=== PATIENT | female | born 1975 | race Caucasian/White ===

== ENCOUNTER 2024-01-31 14:18 | Emergency (ER) | payer OTHER, SELFPAY ==
--- NOTE | ~2024-01-31 | XR_ITS ---
XR foot LT min 3V Ordering provider: Roxy Kim APRN History: . pain across prox lt metatarsals s/p injury 2 weeks ago . Comparison: May 02, 2014 FINDINGS: BONES: No acute fracture or dislocation. Calcaneus spur. JOINT SPACES: Normal. No tarsal coalition. SOFT TISSUES: Normal. IMPRESSION: No acute osseous abnormality left foot. Reviewed, dictated and finalized at location A.
[2024-01-31 14:31] VITALS: BP 160/81; PULSE 76; RESP 16; TEMP 36.2; O2SAT 97
--- NOTE | 2024-01-31 14:49 | ED.LOWEXIN ---
HPI - Extremity Injury (Lower) General Chief Complaint: Extremity Injury, Lower Stated Complaint: left foot injury Source: patient and family ( significant other) Mode of arrival: ambulatory Limitations: no limitations History of Present Illness HPI Narrative: 48-year-old female presents [facility] accompanied by her significant other for complaints of pain, swelling and bruising to the dorsal aspect of her left foot for the past 2 weeks after dropping a heavy metal box on her foot. Patient has been elevating her left foot, applying ice, taking Motrin and applying Aspercreme with little relief. Patient denies numbness, tingling, fever, body aches or chills. complaint: foot injury Onset (ago): week(s) (2) Injury: Left: foot Place: home Relieving factors: nothing Exacerbating factors: weight bearing and movement Other symptoms: none Treatments prior to arrival: cold therapy Related Data Allergies Allergy/AdvReac Type Severity Reaction Status Date / Time No Known Allergies Allergy Unknown Verified 01/31/24 14:45 Review of Systems Constitutional: Constitutional: Denies chills, Denies fatigue, Denies fever(s) and Denies weakness ENT: Denies vertigo and Denies dizziness Cardiovascular: Cardiovascular: Denies chest pain Respiratory: Respiratory: Denies cough, Denies dyspnea and Denies wheezing Gastrointestinal: Gastrointestinal: Denies diarrhea, Denies nausea and Denies vomiting Integumentary/Breasts: Skin/Breast: Denies rash Neurologic: Denies dizziness, Denies syncope and Denies headache(s) PMFSH Past Medical History Medical History Depression Surgical History Surgical History H/O section Family History Family History Father Family history of obesity Diabetes mellitus Mother Family history of obesity Grandparent Family history of pancreatic cancer Family history of malignant neoplasm of breast Other Carcinoma of colon Family history of arthritis Family history of heart disease in male family member before age 55 Family history of malignant neoplasm Family history of mental disorder Hypertension Social History Social History Smoking status: Never smoker Alcohol intake: current Lack of Transportation: No Lack of Food: Never True Current Housing: I Have Housing Concerned About Future Housing: No Difficulty Paying Gas/Electric Bills: No Difficulty Paying for Meds: No Currently Unemployed: No Education: High School Diploma/GED Difficulty w/ Childcare or Family Care: No Comments At time of signature, I agree with nursing past medical, surgical, social and family history. There is no relevant family history pertinent to the presenting complaint. Exam Const: General: healthy appearing and no acute distress Nutritional Appearance: well nourished and obese Orientation/consciousness: patient oriented x3 Limitations: no limitations HENMT: Head: normal to inspection Eyes: Conjunctivae: conjunctivae normal Neck: Neck: normal visual inspection Resp: Effort & Inspection: normal respiratory effort and not labored Auscultation: clear to auscultation bilaterally, no crackles, no rales, no rhonchi and no wheezes Cardio: Rate: regular rate Rhythm: regular rhythm Heart sounds: no murmurs Skin: General skin exam: normal color Rashes: no rashes Wounds: no wounds Neuro: General: patient oriented x3 and moves all extremities Cranial nerves: Yes Nystagmus not present Speech: normal speech Gait exam (Neuro): Normal gait present Extrem: Other: Moderate swelling and minimal bruising noted to dorsal aspect of left foot. There is no streaking erythema, open wounds or signs infection noted. Psych: Affect: normal affect Attitude:
== END 2024-01-31 15:09 | disposition home or self-care (01) ==
PROVIDERS: Emergency Provider Nurse Practitioner Family; PCP Nurse Practitioner Family
DX: M79.672 Pain in left foot (principal)
CPT/HCPCS: 73630; 99213; G0463

== ENCOUNTER 2024-11-28 12:14 | Emergency (ER) | payer OTHER, SELFPAY ==
[2024-11-28 12:25] VITALS: BP 102/57; PULSE 80; RESP 16; TEMP 36.3; O2SAT 96
--- NOTE | 2024-11-28 12:34 | ED_ITS ---
HPI - Ear Problem General Chief complaint: Ear Stated complaint: left ear pain Time Seen by Provider: 11/28/24 12:34 Source: patient Mode of arrival: ambulatory Limitations: no limitations History of Present Illness HPI Narrative: 49-year-old female presented for complaint left ear pain. Onset 3 days. Endorses multiple hearing and pain is worse when lying down. Patient wears a CPAP insists strep causes pain. Denies tinnitus, dizziness, nausea vomiting, fevers or chills. MD Complaint: ear pain Related Data Home Medications ?Medication ?Instructions ?Recorded ?Confirmed ?Last Taken ?Type dulaglutide 1.5 mg/0.5 mL mg subcut 11/28/24 Unknown History subcutaneous pen injector (Trulicity) fluticasone 250 mcg-salmeterol 50 inhalation 11/28/24 Unknown History mcg/dose blistr powdr for inhalation (Advair Diskus) venlafaxine 150 mg mg PO 11/28/24 Unknown History capsule,extended release 24 hr Allergies Allergy/AdvReac Type Severity Reaction Status Date / Time No Known Allergies Allergy Unknown Verified 11/28/24 12:26 Review of Systems Review of Systems: CONSTITUTIONAL: Denies malaise, chills, or fever. EYES: Denies visual changes, redness, or discharge. ENT: Denies rhinorrhea, congestion, sinus pain, and sore throat. Reports ear pain CARDIOVASCULAR: Denies chest pain, palpitations, or edema. RESPIRATORY: Denies cough or dyspnea. GASTROINTESTINAL: Denies abdominal pain, nausea, vomiting, diarrhea SKIN: Denies rash or itching. MUSCULOSKELETAL: Denies myalgia. NEUROLOGIC: Denies headache. All systems reviewed & are unremarkable except as noted in HPI and below PMFSH Past Medical History Medical History Depression Surgical History Surgical History H/O section Family History Family History Father Family history of obesity Diabetes mellitus Mother Family history of obesity Grandparent Family history of pancreatic cancer Family history of malignant neoplasm of breast Other Carcinoma of colon Family history of arthritis Family history of heart disease in male family member before age 55 Family history of malignant neoplasm Family history of mental disorder Hypertension Social History Social History Smoking status: Never smoker Alcohol intake: current Lack of Transportation: No Lack of Food: Never True Current Housing: I Have Housing Concerned About Future Housing: No Difficulty Paying Gas/Electric Bills: No Difficulty Paying for Meds: No Currently Unemployed: No Education: High School Diploma/GED Difficulty w/ Childcare or Family Care: No Comments At time of signature, agree with nursing past medical, surgical, social and family history. There is no relevant family history pertinent to the presenting complaint Exam Narrative: GENERAL: Well-appearing EYES: PERRLA, conjunctivae clear ENT: Nares clear. Mucous membranes moist. Left TM erythematous, bulging and intact with purulent effusion; canal erythematous with swelling, no drainage, no tragal tenderness. Oropharynx not erythematous without lesions. no drooling, no hoarseness, no trismus, uvula midline. NECK: Supple. No lymphadenopathy CHEST: Clear to auscultation, breath sounds equal. HEART: Regular rate and rhythm. SKIN: Warm, dry, no rash. NEURO: Alert and oriented x3. PSYCH: Normal mood and affect Course Course Emergency Course: Patient is aware of diagnosis, understands and agrees to treatment plan. Anticipatory guidance given. Patient agrees to follow-up as directed and is aware of reasons to seek care at the emergency department. Portions of this record may have been created with voice recognition software Level of Care: [facility] Visit Vital Signs Vital signs: Vital Signs Temperature 97.3 F L 11/28/24 12:25 Pulse Rate 80 11/28/24 12:25 Respiratory Rate 16 11/28/24 12:25 Blood Pressure 102/57 L 11/28/24 12:25 Pulse Oximetry 96 11/28/24 12:25 Oxygen Delivery Room Air 11/28/24 12:25 Temperature 97.3 F L 11/28/24 12:25 Pulse Rate 80 11/28/24 12:25 Respiratory Rate 16 11/28/24 12:25 Blood Pressure 102/57 L 11/28/24 12:25 Pulse Oximetry 96 11/28/24 12:25 Oxygen Delivery Room Air 11/28/24 12:25 Reviewed Medical Decision Making MDM Narrative Medical decision making narrative: Discussed physical exam findings consistent with otitis externa and otitis media. Reviewed RX. Advised supportive measures and signs/symptoms to go to the ER. Patient is appropriate for outpatient treatment and follow-up. Differential Diagnosis Differential Diagnosis: Coronavirus, strep pharyngitis, allergic rhinitis, upper respiratory tract infection, sinusitis, rhinosinusitis, nasopharyngitis, viral pharyngitis, otitis media, otitis externa, eustachian tube dysfunction, foreign body, cerumen impaction. Vital Signs Vital Signs: Vital Signs Temperature 97.3 F L 11/28/24 12:25 Pulse Rate 80 11/28/24 12:25 Respiratory Rate 16 11/28/24 12:25 Blood Pressure 102/57 L 11/28/24 12:25 Pulse Oximetry 96 11/28/24 12:25 Oxygen Delivery Room Air 11/28/24 12:25 Temperature 97.3 F L 11/28/24 12:25 Pulse Rate 80 11/28/24 12:25 Respiratory Rate 16 11/28/24 12:25 Blood Pressure 102/57 L 11/28/24 12:25 Pulse Oximetry 96 11/28/24 12:25 Oxygen Delivery Room Air 11/28/24 12:25 Discharge Plan Discharge Clinical Impression: Otitis media Qualifiers: Otitis media type: suppurative Chronicity: acute Laterality: left Spontaneous tympanic membrane rupture: without spontaneous rupture Otitis externa Qualifiers: Otitis externa type: unspecified type Chronicity: acute Laterality: left Qualified Code(s): H60.502 - Unspecified acute noninfective otitis externa, left ear Patient Disposition: Home Condition: Stable Instructions: Antibiotic Form, Ear Infection (ED) Additional Instructions: Take antibiotics as directed. Recommendations: antihistamine such as Zyrtec or Amalia for sinus congestion Flonase nasal spray, 1 spray in each nostril once daily until symptoms improve Tylenol 1000mg every 8 hours as needed to reduce fever, pain Swimmer's ear is an infection in the outer ear canal, which runs from your eardrum to the outside of your head. It's often caused by water that remains in your ear, creating a moist environment that encourages the growth of bacteria. Avoid water or anything into the ear for one week Follow up with your personal physician If your symptoms persist, change or worsen significantly, go to the emergency department for further evaluation. Patient Language: Georgian Prescriptions: New amoxicillin-pot clavulanate 875-125 mg tablet 1 tablet PO Q12H 7 Days Qty: 14 0RF ciprofloxacin-dexamethasone 0.3-0.1 % drops,suspension 4 drp LEFT EAR Q12H 7 Days Qty: 7.5 0RF No Action fluticasone propion-salmeterol [Advair Diskus] 250-50 mcg/dose blister with device INHALATION venlafaxine 150 mg capsule,extended release 24hr PO Trulicity 1.5 mg/0.5 mL pen injector SUBCUT omeprazole 40 mg capsule,delayed release(DR/EC) 40 mg PO BID Qty: 180 1RF albuterol sulfate 90 mcg/actuation HFA aerosol inhaler See Rx Instructions .ROUTE .COMPLEX Qty: 8.5 3RF Dose Instruction: INHALE 1 PUFF BY MOUTH EVERY 4 HOURS Rx Instructions: INHALE 1 PUFF BY MOUTH EVERY 4 HOURS ferrous sulfate 324 mg (65 mg iron) tablet,delayed release (DR/EC) See Rx Instructions .ROUTE .COMPLEX Qty: 60 4RF Dose Instruction: TAKE 1 TABLET BY MOUTH TWICE A DAY Rx Instructions: TAKE 1 TABLET BY MOUTH TWICE A DAY alprazolam 0.25 mg tablet 0.25 mg PO TID PRN (Reason: anxiety) Qty: 75 0RF Rx Instructions: TAKE 1 TABLET 3 TIMES A DAY NEEDED montelukast 10 mg tablet 10 mg PO DAILY Qty: 90 1RF Follow-up/Referrals: Nilo,INDIO Fish [Primary Care Provider] - Time of Disposition: 12:41
== END 2024-11-28 12:44 | disposition home or self-care (01) ==
PROVIDERS: Emergency Provider Nurse Practitioner Family; PCP Physician Assistant
DX: H66.002 Acute suppurative otitis media without spontaneous rupture of ear drum, left ear (principal); H60.502 Unspecified acute noninfective otitis externa, left ear; F32.A Depression, unspecified
CPT/HCPCS: 99213; G0463